=== PATIENT | female | born 1965 | race Caucasian/White ===

== ENCOUNTER 2021-06-06 01:15 | Day surgery (SDC) | payer OTHER ==
[~2021-06-06 01:15] MED LIST: ALBU90OI INH; AMLO10 PO; BIRTH CONTROL PO; CEPH500 PO; ESTR2 PO; HYDACE5 PO; IBUP400 PO; IBUP800 PO; LISHYD1012 PO; LISHYD2025 PO; MEDR2.5 PO; METPRE4DP PO; NAPR500EC PO; OMEP20ER PO; PRED20 PO
--- NOTE | 2021-06-06 14:31 | NUR ---
2 IV ATTEMPTS BY ALAN UNSUCCESSFUL PRIOR TO IV START BY CARMEN
[2021-06-06] MEDS ORDERED: TRAZ150T57 PO (14:47)
[2021-06-06] MEDS ORDERED: Hair, Skin & N1 EACH PO (14:48)
[2021-06-06] MEDS ORDERED: DIPATR PO (14:49)
[2021-06-06] MEDS ORDERED: CALTRATE 600+D1 EAC1 PO (14:49)
[2021-06-06] MEDS ORDERED: Bentyl20 MG PO (14:49)
[2021-06-06] MEDS ORDERED: Vitamin B-Comp1 EACH PO (14:49)
[2021-06-06] MEDS ORDERED: Magnesium500 M1 PO (14:50)
[2021-06-06] MEDS ORDERED: TRAM50 PO (14:50)
[2021-06-06] MEDS ORDERED: POTASSIUM GLUCO99 M1 PO (14:51)
[2021-06-06] MEDS ORDERED: Co Q-10300 MG PO (14:51)
[2021-06-06] MEDS ORDERED: L-LYSINE500 MG PO (14:52)
[2021-06-06] MEDS ORDERED: C COMPLEX1000 M1 PO (14:52)
[2021-06-06] MEDS ORDERED: METPRE4 PO (14:52)
[2021-06-06] MEDS ORDERED: ONDA4 PO (14:53)
[2021-06-06] MEDS ORDERED: Prednisone10 MG PO (15:03)
[2021-06-06] MEDS ORDERED: MESA250ER PO (15:04)
== END 2021-06-06 16:53 | disposition home or self-care (01) ==
LOC: ATC 01:15
DX: K52.9 Noninfective gastroenteritis and colitis, unspecified (principal); Z88.8 Allergy status to other drugs, medicaments and biological substances
CPT/HCPCS: 96413; 96415; J1745; J7050

== ENCOUNTER 2021-06-22 00:43 | Day surgery (SDC) | payer OTHER ==
[~2021-06-22 00:43] MED LIST changes: +Bentyl20 MG PO; +C COMPLEX1000 M1 PO; +CALTRATE 600+D1 EAC1 PO; +Co Q-10300 MG PO; +DIPATR PO; +Hair, Skin & N1 EACH PO; +L-LYSINE500 MG PO; +MESA250ER PO; +METPRE4 PO; +Magnesium500 M1 PO; +ONDA4 PO; +POTASSIUM GLUCO99 M1 PO; +Prednisone10 MG PO; +TRAM50 PO; +TRAZ150T57 PO; +Vitamin B-Comp1 EACH PO
== END 2021-06-22 16:32 | disposition home or self-care (01) ==
LOC: ATC 00:43
DX: K52.9 Noninfective gastroenteritis and colitis, unspecified (principal); I10 Essential (primary) hypertension; K21.9 Gastro-esophageal reflux disease without esophagitis; Z88.8 Allergy status to other drugs, medicaments and biological substances
CPT/HCPCS: 96413; 96415; J1745; J7050

== ENCOUNTER 2021-07-20 03:05 | Day surgery (SDC) | payer OTHER ==
[~2021-07-20] VITALS: Wt 73.3 kg
== END 2021-07-20 22:56 | disposition home or self-care (01) ==
LOC: ATC 03:05
DX: K52.9 Noninfective gastroenteritis and colitis, unspecified (principal)
CPT/HCPCS: 96413; 96415; J1745; J7050